=== PATIENT | female | born 1970 | race Caucasian/White ===

== ENCOUNTER → 2017-05-15 | Outpatient (CLI) | payer OTHER | LOC: CFH 08:50 | PROVIDERS: ATTEND Genetic Counselor, MS | DX: Z12.31 Encounter for screening mammogram for malignant neoplasm of breast (principal) | CPT/HCPCS: 77063; 77067 ==

== ENCOUNTER → 2020-05-19 | Outpatient (CLI) | payer OTHER, BC | END | disposition home or self-care (01) | LOC: CFH 09:05 | PROVIDERS: ATTEND Genetic Counselor, MS | DX: Z12.31 Encounter for screening mammogram for malignant neoplasm of breast (principal) | CPT/HCPCS: 77063; 77067 ==

== ENCOUNTER 2020-09-29 11:21 | Emergency (ER) | payer OTHER, BC ==
[~2020-09-29] VITALS: Ht 170.2 cm; Wt 68.2 kg
[2020-09-29] MEDS ORDERED: THYR60TA PO (11:57)
[2020-09-29] MEDS ORDERED: L-NO1TBD3 PO (11:59)
--- NOTE | 2020-09-29 12:02 | NUR ---
PT RESTING IN POSITION OF COMFORT IN [place]. FAMILY AT BEDSIDE. CALL LIGHT W/IN REACH. PT INSTRUCTED ON USE, VERBALIZED UNDERSTANDING. VSS. AWAITING EVAL BY ED MD. PT DENIES NEEDS AT THIS TIME, NAD PRESENT.
[2020-09-29 13:08] VITALS: BP 120/76
--- NOTE | 2020-09-29 14:22 | NUR ---
Patient given discharge instructions and they have confirmed that they understand the instructions. Patient ambulatory with steady gait.
== END 2020-09-29 14:24 | disposition home or self-care (01) ==
LOC: ED 14:00
DX: S00.03XA Contusion of scalp, initial encounter (principal); R42 Dizziness and giddiness; R51.9 Headache, unspecified; R11.0 Nausea; W22.8XXA Striking against or struck by other objects, initial encounter; Y93.89 Activity, other specified; Y92.009 Unspecified place in unspecified non-institutional (private) residence as the place of occurrence of the external cause; Y99.8 Other external cause status
CPT/HCPCS: 99283